=== PATIENT | male | born 1995 | race Caucasian/White ===

== ENCOUNTER 2016-08-17 12:04 | Outpatient (CLI) | payer BC ==
--- NOTE | 2016-08-17 20:49 | Diagnostic Imaging Report ---
XENIA SHWA [facility] [address] Pending Sale To [facility] [address] [address] Report Submission Date: Aug 17, 2016 2:06:08 PM CDT Patient Study Name: SAMY BENITEZ Date: Aug 17, 2016 12:25:02 PM CDT Modality Type: CR Gender: M Description: SPINE : 89 Institution: [facility] Physician: XENIA SHAW Lumbar spine - three views Clinical history: Acute low back pain after lifting. Findings: Examination of the lumbar spine in AP, lateral and lateral coned- down views demonstrates the vertebrae to be anatomically aligned. The pedicles are intact and the paravertebral soft tissues are within normal limits. Impression: 1. Negative lumbar spine. Electronically signed on Aug 17, 2016 2:06:08 PM CDT by: Evan BROUSSARD
== END 2016-08-17 12:05 ==
LOC: EDSEX 12:04 → RAD 12:04
PROVIDERS: ATTEND Physician Assistant
DX: M54.5 Low back pain (principal)
CPT/HCPCS: 72100